=== PATIENT | male | born 1950 | race Caucasian/White ===

== ENCOUNTER 2020-04-07 21:23 | Inpatient (IN) ==
[2020-04-07] MEDS ORDERED: LIDOCAINE/EPINEPH/TETRACAINE 1 EA SYR EXT STA ×2 (21:58)
[2020-04-07] MEDS ORDERED: DIPHTHERIA/TETANUS/PERTUSSIS 0.5 ML SYR/VIAL IM ONE (21:58)
[2020-04-07 22:11] LABS: Basophils # (auto) 0.04 K/uL (0-0.2); Basophils % (auto) 0.6 %; Eosinophils # (auto) 0.06 K/uL (0-0.5); Eosinophils % (auto) 0.8 %; Hematocrit (blood only) 42.4 % (42-52); Hemoglobin 14.6 g/dL (14.0-18.0); Immature Granulocytes # (auto) 0.01 K/uL (0.00-0.02); Immature Granulocytes % (auto) 0.1 %; Lymphocytes # (auto) 3.22 K/uL (1.2-3.4); Lymphocytes % (auto) 44.5 %; Mean Corpuscular Hemoglobin 29.6 pg (25-34); Mean Corpuscular Hgb Conc 34.4 g/dL (32-36); Mean Platelet Volume 9.5 fL (7.4-10.4); Monocytes # (auto) 0.53 K/uL (0.11-0.59); Monocytes % (auto) 7.3 %; Neutrophils # (auto) 3.38 K/uL (1.4-6.5); Neutrophils % (auto) 46.7 %; Platelet Count 268 K/uL (130-400); RDW Coefficient of Variation 12.9 % (11.5-14.5); RDW Standard Deviation 40.6 fL (36.4-46.3); Red Blood Count 4.93 M/uL (4.7-6.1); White Blood Count 7.24 K/uL (4.8-10.8)
--- NOTE | 2020-04-07 22:16 | Emergency Department Note ---
History of Present Illness General Chief complaint: Fall Stated complaint: FALL, LAC TO FOREHEAD & NOSE History of Present Illness Maximum Pain Intensity: 0 This 70-year-old presents to the ER complaining of head and facial injury who is been drinking alcohol today and who takes aspirin Location: Head and face Quality: Throbbing Severity: Moderate Duration: Today Timing: Patient tripped while taking the trash out Context: Patient has multiple lacerations to his face and his family called EMS Modifying factors: better with rest; worse with activity Patient denies chest pain, dyspnea, abdominal pain, numbness, tingling, neck pain, loss of consciousness, fever, chills. 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 Beliefs That Will Affect Care: None Current Living Situation: Family Feels Safe at Home: Yes Safety Concerns: Feels Safe At This Time Review of Systems A total of 10 systems reviewed and were otherwise negative Physical Exam Vital Signs Vital Signs - 24 hr 04/07/20 21:28 04/07/20 22:57 04/07/20 23:32 Temperature 36.7 C Temperature Source Oral Pulse Rate 90 Pulse Rate [Right Finger] 96 H Respiratory Rate 16 19 Respiratory Depth Normal Blood Pressure 118/94 Blood Pressure [Right Arm] 129/107 H Blood Pressure Mean 102 Blood Pressure Mean [Right Arm] 114 Blood Pressure Position Lying Pulse Oximetry 95 97 96 Oxygen Delivery Method Room Air Room Air Sepsis Recent Fever Within 48 Hours No Sepsis New/Unexplained Change in Mental Status No Sepsis Action Taken by Nursing No Action Required PHYSICAL EXAM: VITALS: Vitals are noted on the nurse's note and reviewed by myself. Vital signs stable. GENERAL: Pleasant male with EtOH odor, in no acute distress, nondiaphoretic, well-developed well-nourished. SKIN: Multiple lacerations and abrasions to the forehead and nose, the rest of the skin was without obvious lacerations or abrasions. Capillary reflex less than 2 seconds. HEAD: Normocephalic Face: Nasal unit tender to palpation with extensive lacerations. Patient can fully open and close jaw without pain. EARS: External auditory canals clear, tympanic membranes pearly asif without erythema or effusion bilaterally. No hemotympanums. No matute sign. No mastoid tenderness. EYES: Pupils equal round and reactive to light and accommodation. Conjunctivae without injection, sclerae without icterus. Extraocular movements intact. NOSE: Patent, turbinates without inflammation or discharge. No sinus tendernes s. No septal hematoma or bleeding. FACE: No facial bone tenderness. Full range of motion of the jaw without tenderness. MOUTH: Mucous membranes moist. Pharynx without erythema or exudate. Uvula mi dline. Airway patent. Tongue does not deviate. NECK: Supple without nuchal rigidity. Cervical spine is nontender. Full range of motion of the neck without tenderness. No JVD. HEART: Regular rate and rhythm LUNGS: Clear to auscultation bilaterally without wheezes, rales or rhonchi. No dullness to percussion. No retractions or accessory muscle use. No chest wall tenderness. ABDOMEN: Positive bowel sounds x 4. Normal tympanic percussion. Soft, nontender, without masses or organomegaly. No guarding or rebound tenderness. MUSCULOSKELETAL: No tenderness of the thoracic or lumbar spine. No tenderness with pelvic rocking. Full range of motion without tenderness to palpation in all extremities. Normal gait. Strength 5/5 throughout. NEURO: Patient was alert and oriented to person place and time. Normal Mini- Mental status exam. Normal sensation to light and sharp touch. Negative Romberg and pronator drift. Cerebellar function intact. No focal neurological deficits. Course Administered Medications Multivitamins 10 ml/ Thiamine HCl 100 mg/ Folic Acid 1 mg/Sodium Chloride 1,011.2 mls @ 50 mls/hr IV .[id number] ONE Stop: 04/08/20 23:43 Last Admin: 04/08/20 04:41 Dose: 50 mls/hr Documented by: [id number] Discontinued Medications Diphtheria/Pertussis/Tetanus Vacc (Diphtheria/Tetanus/Pertussis 0.5 Ml Syr/Vial) 0.5 ml IM .ONCE ONE Stop: 04/07/20 21:59 Last Admin: 04/07/20 22:56 Dose: 0.5 ml Documented by: [id number] Ampicillin Sodium/Sulbactam Sodium 3,000 mg/ Sodium Chloride 108 mls @ 200 mls/hr IV NOW STA; Protocol Stop: 04/07/20 23:37 Last Infusion: 04/08/20 01:16 Dose: 0 mls/hr Documented by: [id number] Admin: 04/07/20 23:29 Dose: 200 mls/hr Documented by: [id number] Sodium Chloride (Nss 1000ml) 500 mls @ 999 mls/hr IV .Q31M ONE Stop: 04/08/20 00:08 Last Infusion: 04/08/20 01:16 Dose: 0 mls/hr Documented by: [id number] Admin: 04/07/20 23:56 Dose: 999 mls/hr Documented by: [id number] Lidocaine (Lidocaine/Epineph/Tetracaine 1 Ea Syr) 1 ea EXT NOW STA Stop: 04/07/20 21:59 Last Admin: 04/07/20 22:19 Dose: 1 ea Documented by: [id number] Lidocaine (Lidocaine/Epineph/Tetracaine 1 Ea Syr) 1 ea EXT NOW STA Stop: 04/07/20 21:59 Last Admin: 04/07/20 22:19 Dose: 1 ea Documented by: [id number] Medical Decision Making Medical Records Attestation: I reviewed the patient's medical records. Home Medications Current Medication List: was personally reviewed by me Laboratory Data Attestation: I reviewed the patient's lab results. Result diagrams: 04/08/20 05:19 04/07/20 21:02 Lab Results 04/07/20 04/07/20 04/07/20 Range/Units 21:02 21:02 22:07 WBC 7.24 (4.8-10.8) K/uL RBC 4.93 (4.7-6.1) M/uL Hgb 14.6 (14.0-18.0) g/dL Hct 42.4 (42-52) % MCV 86.0 (80-100) fL MCH 29.6 (25-34) pg MCHC 34.4 (32-36) g/dL RDW Std Deviation 40.6 (36.4-46.3) fL RDW Coeff of Tk 12.9 (11.5-14.5) % Plt Count 268 (130-400) K/uL MPV 9.5 (7.4-10.4) fL Immature Gran % (Auto) 0.1 % Neut % (Auto) 46.7 % Lymph % (Auto) 44.5 % [place] % (Auto) 7.3 % Eos % (Auto) 0.8 % Baso % (Auto) 0.6 % Neut # (Auto) 3.38 (1.4-6.5) K/uL Lymph # (Auto) 3.22 (1.2-3.4) K/uL [place] # (Auto) 0.53 (0.11-0.59) K/uL Eos # (Auto) 0.06 (0-0.5) K/uL Baso # (Auto) 0.04 (0-0.2) K/uL Immature Gran # (Auto) 0.01 (0.00-0.02) K/uL Sodium 134 L (136-145) mmol/L Potassium 3.6 (3.5-5.1) mmol/L Chloride 102 (98-107) mmol/L Carbon Dioxide 23 (21-32) mmol/L Anion Gap 9.0 (3-11) BUN 11 (7-18) mg/dl Creatinine 0.80 (0.6-1.4) mg/dl Est Cr Clr Drug Dosing 97.3 ml/min Est GFR ( Amer) 105.6 Est GFR (Non-Af Amer) 91.1 BUN/Creatinine Ratio 13.8 (10-20) Glucose 82 (70-99) mg/dl Calcium 9.1 (8.5-10.1) mg/dl Magnesium 2.4 (1.8-2.4) mg/dl Total Bilirubin 0.5 (0.2-1) mg/dl AST 25 (15-37) U/L ALT 39 (12-78) U/L Alkaline Phosphatase 55 (45-117) U/L Total Creatine Kinase 277 (39-308) U/L Troponin I < 0.015 (0-0.045) ng/ml Total Protein 7.8 (6.4-8.2) gm/dl Albumin 4.0 (3.4-5.0) gm/dl Globulin 3.8 (2.5-4.0) gm/dl Albumin/Globulin Ratio 1.1 (0.9-2) Ethyl Alcohol mg/dL 242.5 H (0-3) mg/dl Imaging Data Attestation: I personally reviewed and interpreted this imaging study as follows: Blood Pressure Blood Pressure Findings: Normal blood pressure Head Trauma GCS Score: 15 MDM Narrative Prior records/ancillary studies reviewed. Triage Nursing notes reviewed. Additional history obtained from nursing. The patient's history was concerning for traumatic injury Differential diagnosis: Etiologies such as fracture, dislocation, intra-abdominal, pneumothorax, intrathoracic , intracranial, neurologic, as well as other traumatic pathologies were entertained. Physical examination findings: As above. The patients vitals were stable. ER treatment provided: IV Normal Saline hydration, Tetanus: Given Antibiotics: Unasyn Procedures: Wounds were cleansed by nursing An order was placed for continuous cardiac monitoring. The monitor shows a rate of 60-1 10 with a sinus rhythm. On reassessment the patient felt better. Vital signs were proved. Diagnostic interpretation by me: A 12 lead ECG revealed no emergent pathology. Normal sinus, normal intervals, no acute ST-T wave changes. Impression normal sinus with interpreted by myself EKG ordered for fall I think arrhythmia is unlikely. EKG shows normal sinus rhythm with no interval abnormalities such as QT prolongation or WPW. There are no findings to suggest Brugada syndrome. Cardiac monitoring in the emergency department reveals no tachycardic or bradycardic dysrhythmia. Hypertrophic cardiomyopathy was considered but there are no clear historical elements pointing toward this. EKG is not suggestive. The QRS voltage is not extremely large and there are no suggestive Q waves. The labs revealed elevated alcohol. Stable H&H Imaging studies: CT HEAD: Comparison with 09/27/19 exam. Acute nondisplaced nasal bone fracture. No acute intracranial hemorrhage, mass effect or edema. No evidence of acute cortical stroke. Periventricular small vessel ischemic change. No midline shift or hydrocephalus. Diffuse parenchymal atrophy. Atherosclerotic calcifications of the carotid siphons and vertebrobasilar arteries. Visualized sinuses and mastoid air cells are clear. Radiologist: Josh Jean-Baptiste M.D. CT C SPINE: No evidence of acute or healing fracture or malalignment. Diffuse osteopenia. Degenerative changes of spine. No critical central canal stenosis. No apical pneumothorax. Atherosclerotic calcific changes of the cervical carotid arteries. Radiologist: Josh Jean-Baptiste M.D. Chest x-ray with no acute consolidation, pneumothorax or free air per my interpretation CT FACIAL: Acute comminuted fracture involving the nasal bone. No other acute or healing fractures. Globes are intact and retrobulbar soft tissues are unremarkable. Scattered paranasal sinus mucosal thickening with no air-fluid levels. No radiopaque foreign bodies. Radiologist: Josh Jean-Baptiste M.D. Consultation: A consultation was placed with Dr. Stout. The case was discussed and diagnostics were reviewed. The patient was admitted to medicine. Oral surgery, Dr. Harrell, was paged for surgical repair. He will see the patient this morning for further evaluation and treatment. This appears to be consistent with extensive facial lacerations and open fracture. Patient started antibiotics and given a tetanus. Lacerations were quite complex. Consultation was placed with oral plastic surgery. Patient was admitted to medicine. By the evaluation outlined above emergent etiologies such as dislocation, intra-abdominal, pneumothorax, pulmonary contusion, hemothorax, intracranial, neurologic,as well as others were deemed relatively unlikely. The pt informed about the findings as listed above. All questions were answered and pleased with the treatment. Impression & Plan Head injury, Complex laceration of face, Face lacerations, Open fracture nasal bone, Alcohol intoxication Discharge Plan Visit Data Chief Complaint: Fall Stated Complaint: FALL, LAC TO FOREHEAD & NOSE ED Provider: Omid Carlton ED Midlevel Provider: Luisa Kelly Discharge Problem: Head injury, Complex laceration of face, Face lacerations, Open fracture nasal bone, Alcohol intoxication Patient Disposition: Admitted As Inpatient Condition: Fair Discharge Instructions Interventions: ED Discharge Assessment Last Done: 04/08/20 01:03 Discharge Problem: Head injury Qualifiers: Encounter type: initial encounter Qualified Code(s): S09.90XA - Unspecified injury of head, initial encounter
[2020-04-07 22:17] LABS: Alanine Aminotransferase 39 U/L (12-78); Aspartate Aminotransferase 25 U/L (15-37); BUN Creatinine Ratio 13.8 (10-20); Blood Urea Nitrogen 11 mg/dl (7-18); Calcium 9.1 mg/dl (8.5-10.1); Carbon Dioxide 23 mmol/L (21-32); Chloride 102 mmol/L (98-107); Creatinine Clr Calc Pharmacy 97.3 ml/min; Est GFR (African American) 105.6; Est GFR (Non-African American) 91.1; Glucose 82 mg/dl (70-99); Potassium 3.6 mmol/L (3.5-5.1); Sodium 134 mmol/L (136-145)
[2020-04-07 22:22] LABS: Albumin Globulin Ratio 1.1 (0.9-2); Alkaline Phosphatase 55 U/L (45-117); Bilirubin,Total 0.5 mg/dl (0.2-1); Creatine Kinase 277 U/L (39-308); Globulin 3.8 gm/dl (2.5-4.0); Total Protein 7.8 gm/dl (6.4-8.2); Troponin I < 0.015 ng/ml (0-0.045)
[2020-04-07] MEDS ORDERED: AMPICILLIN/SULBACTAM SOD 3,000 MG in 0.9 % SODIUM CHLORIDE 100 ML IV STA (23:05)
--- NOTE | 2020-04-07 23:22 | Emergency Department Note ---
ED Visit Note This Patient was discussed with the physician finance assistant, Luisa Kelly PA-C. The pertinent historical and physical exam findings were confirmed. I agree with the studies ordered and with the interpretations of these studies. I agree with the disposition and care plan. .
[2020-04-07] MEDS ORDERED: SODIUM CHLORIDE 0.9% 1000ML 500 ML IV ONE (23:38)
[2020-04-08 00:15] LABS: Magnesium 2.4 mg/dl (1.8-2.4)
--- NOTE | 2020-04-08 01:02 | History & Physical Report ---
Date of Service April 08, 2020 Assessment & Plan (1) Facial trauma: Multiple lacerations Nasal bone fracture Secondary to fall under the influence of alcohol COPD, stable Ongoing tobacco abuse OBS Medical telemetry given propensity for alcohol withdrawal DT precautions, AWSS Maxillofacial consult RE facial trauma (ER provider attempted to contact Dr. Harrell from ER.) Keep patient n.p.o. for now in anticipation of procedure. Augmentin course for dirty facial wounds. Nicotine patch PRN DVT prophylaxis. SCDs RE bleeding facial lacerations, traumatic epistaxis Full code Text document was generated using [employer] voice recognition software. It may contain grammatical or spelling errors. Kindly contact undersigned for clarification of any documentation item in question. History of Present Illness Chief Complaint: Fall Primary Care Provider: Jez Mayer MD History obtained from patient and records. Medical history significant for COPD, ongoing tobacco abuse. Patient was having a drink with a friend at his home last night. Patient tripped and fell while taking the trash out. Patient subsequently sustained abrasions on the right shoulder, multiple bleeding facial lacerations, and epistaxis. Denies syncope, LOC, chest pain, S OB. Patient denies headache symptoms. Patient brought to the ER for evaluation. IV Unasyn, tetanus toxoid administered at the ER for dirty facial wounds. Medical History as above No prior history of alcohol withdrawal/seizures. Surgical History : Hernia repair Family History : Colon cancer, heart disease, stroke Personal/Social history : Half pack daily, daily alcohol intake denies abuse, retired cook chef Allergies Allergy/AdvReac Type Severity Reaction Status Date / Time No Known Allergies Allergy Unknown Verified 04/07/20 23:01 Home Medications Home Medications Medication Instructions Recorded Confirmed Type No Known Home Medications 09/27/19 04/07/20 History Past Med/Surg History Medical History Hyperlipidemia Surgical History No pertinent past surgical history Social History Smoking Status: Current every day smoker Hx Alcohol Use: Yes Alcohol type: beer Hx Substance Use: No Preferred Language: Icelandic Communication Ability: Effective Communication Ability Comment: 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 Beliefs That Will Affect Care: None Current Living Situation: Family Feels Safe at Home: Yes Safety Concerns: Feels Safe At This Time Review of Systems Review of Systems: As per HPI, all 10 systems reviewed, all other ROS negative Physical Exam Physical Exam: GENERAL: Comfortable, pleasant, obese, alcoholic fetor, no respiratory distress SKIN: Normal color, warm HEENT: Partial alopecia, lacerated wound frontal area, pink palpebral conjunctivae, no ptosis, lacerated wounds over swollen nasal dorsum, dried blood noted over the nostrils, dry buccal mucosa, partially edentulous NECK : Supple, short neck, no tenderness CHEST : Decreased breath sounds, no tenderness HEART : RRR, no obvious murmurs ABDOMEN: Some distention, nontender EXTREMITIES : Abrasion right shoulder, no LE swelling/tenderness, no other conspicuous deformities noted NEUROLOGIC : Coherent, no facial asymmetry, no other gross focality Results & Data Results & Data ([facility]) Vital Signs (Past 12 Hours) Vital Signs Temp Pulse Pulse Resp BP BP Pulse Ox 04/07/20 23:32 96 04/07/20 22:57 96 H 19 129/107 H 97 04/07/20 21:28 36.7 C 90 16 118/94 95 Laboratory Results Laboratory Results WBC 7.24 K/uL (4.8-10.8) 04/07/20 21:02 RBC 4.93 M/uL (4.7-6.1) 04/07/20 21:02 Hgb 14.6 g/dL (14.0-18.0) 04/07/20 21:02 Hct 42.4 % (42-52) 04/07/20 21:02 MCV 86.0 fL (80-100) 04/07/20 21:02 MCH 29.6 pg (25-34) 04/07/20 21:02 MCHC 34.4 g/dL (32-36) 04/07/20 21:02 RDW Std Deviation 40.6 fL (36.4-46.3) 04/07/20 21:02 RDW Coeff of Tk 12.9 % (11.5-14.5) 04/07/20 21:02 Plt Count 268 K/uL (130-400) 04/07/20 21:02 MPV 9.5 fL (7.4-10.4) 04/07/20 21:02 Immature Gran % (Auto) 0.1 % 04/07/20 21:02 Neut % (Auto) 46.7 % 04/07/20 21:02 Lymph % (Auto) 44.5 % 04/07/20 21:02 [place] % (Auto) 7.3 % 04/07/20 21:02 Eos % (Auto) 0.8 % 04/07/20 21:02 Baso % (Auto) 0.6 % 04/07/20 21:02 Neut # (Auto) 3.38 K/uL (1.4-6.5) 04/07/20 21:02 Lymph # (Auto) 3.22 K/uL (1.2-3.4) 04/07/20 21:02 [place] # (Auto) 0.53 K/uL (0.11-0.59) 04/07/20 21:02 Eos # (Auto) 0.06 K/uL (0-0.5) 04/07/20 21:02 Baso # (Auto) 0.04 K/uL (0-0.2) 04/07/20 21:02 Immature Gran # (Auto) 0.01 K/uL (0.00-0.02) 04/07/20 21:02 Sodium 134 mmol/L (136-145) L 04/07/20 21:02 Potassium 3.6 mmol/L (3.5-5.1) 04/07/20 21:02 Chloride 102 mmol/L (98-107) 04/07/20 21:02 Carbon Dioxide 23 mmol/L (21-32) 04/07/20 21:02 Anion Gap 9.0 (3-11) 04/07/20 21:02 BUN 11 mg/dl (7-18) 04/07/20 21:02 Creatinine 0.80 mg/dl (0.6-1.4) 04/07/20 21:02 Est Cr Clr Drug Dosing 97.3 ml/min 04/07/20 21:02 Est GFR ( Amer) 105.6 04/07/20 21:02 Est GFR (Non-Af Amer) 91.1 04/07/20 21:02 BUN/Creatinine Ratio 13.8 (10-20) 04/07/20 21:02 Glucose 82 mg/dl (70-99) 04/07/20 21:02 Calcium 9.1 mg/dl (8.5-10.1) 04/07/20 21:02 Magnesium 2.4 mg/dl (1.8-2.4) 04/07/20 21:02 Total Bilirubin 0.5 mg/dl (0.2-1) 04/07/20 21:02 AST 25 U/L (15-37) 04/07/20 21:02 ALT 39 U/L (12-78) 04/07/20 21:02 Alkaline Phosphatase 55 U/L (45-117) 04/07/20 21:02 Total Creatine Kinase 277 U/L (39-308) 04/07/20 21:02 Troponin I < 0.015 ng/ml (0-0.045) 04/07/20 21:02 Total Protein 7.8 gm/dl (6.4-8.2) 04/07/20 21:02 Albumin 4.0 gm/dl (3.4-5.0) 04/07/20 21:02 Globulin 3.8 gm/dl (2.5-4.0) 04/07/20 21:02 Albumin/Globulin Ratio 1.1 (0.9-2) 04/07/20 21:02 Ethyl Alcohol mg/dL 242.5 mg/dl (0-3) H 04/07/20 22:[address] head initial read: Acute nondisplaced nasal bone fracture. No intracranial hemorrhage, mass-effect or edema. Diffuse parenchymal atrophy. CT cervical spine: Initial read no evidence of acute or healing fracture or malalignment. CT facial initial read: Acute comminuted fracture involving the nasal bone. No other acute or healing fractures. Intact globe. Retrobulbar soft tissues are unremarkable. Chest x-ray as per my interpretation cardiomegaly, atelectasis. EKG as per my interpretation : Rate 95, NSR, normal axis, T wave flattening inferior leads Code Status & VTE Plan VTE Prophylaxis Plan VTE Prophylaxis will be ordered: Yes
[2020-04-08] MEDS ORDERED: ATIVAN IV ALCOHOL WITHDRAWL IV PRN (02:55)
[2020-04-08] MEDS ORDERED: OXYCODONE HCL IR 5 MG TAB (IMMEDIATE RELEASE) PO PRN (02:55)
[2020-04-08] MEDS ORDERED: LORazepam 3 MG/6 ML VIAL IV PRN (02:55)
[2020-04-08] MEDS ORDERED: KETOROLAC TROMETHAMINE 15 MG/ML VIAL IV PRN (02:55)
[2020-04-08] MEDS ORDERED: LORazepam 2 MG/4 ML VIAL IV PRN (02:55)
[2020-04-08] MEDS ORDERED: ACETAMINOPHEN 325 MG TAB PO PRN (02:55)
[2020-04-08] MEDS ORDERED: LORazepam 1 MG/2 ML VIAL IV PRN (02:55)
[2020-04-08] MEDS ORDERED: PROMETHAZINE HCL 12.5 MG in SODIUM CHLORIDE 0.9% 50 ML IV PRN (02:55)
[2020-04-08] MEDS ORDERED: MULTI-VITAMIN INFUSION 10 ML, THIAMINE HCL 100 MG, FOLIC ACID 1 MG in SODIUM CHLORIDE 0... IV ONE (03:30)
[2020-04-08] MEDS ORDERED: Augmentin: PHARMACY CONSULT IN PROGRESS PRN (04:21)
[2020-04-08 05:49] LABS: Basophils # (auto) 0.03 K/uL (0-0.2); Basophils % (auto) 0.3 %; Eosinophils # (auto) 0.12 K/uL (0-0.5); Eosinophils % (auto) 1.3 %; Hematocrit (blood only) 41.3 % (42-52); Hemoglobin 14.5 g/dL (14.0-18.0); Immature Granulocytes # (auto) 0.03 K/uL (0.00-0.02); Immature Granulocytes % (auto) 0.3 %; Lymphocytes # (auto) 2.78 K/uL (1.2-3.4); Lymphocytes % (auto) 29.5 %; Mean Corpuscular Hemoglobin 30.1 pg (25-34); Mean Corpuscular Hgb Conc 35.1 g/dL (32-36); Mean Corpuscular Volume 85.9 fL (80-100); Mean Platelet Volume 9.2 fL (7.4-10.4); Monocytes % (auto) 6.4 %; Neutrophils # (auto) 5.87 K/uL (1.4-6.5); Neutrophils % (auto) 62.2 %; Platelet Count 252 K/uL (130-400); RDW Coefficient of Variation 13.1 % (11.5-14.5); RDW Standard Deviation 41.1 fL (36.4-46.3); Red Blood Count 4.81 M/uL (4.7-6.1); White Blood Count 9.43 K/uL (4.8-10.8)
[2020-04-08 06:45] LABS: BUN Creatinine Ratio 11.3 (10-20); Calcium 8.6 mg/dl (8.5-10.1); Creatinine Clr Calc Pharmacy 99.7 ml/min; Est GFR (African American) 109.1; Est GFR (Non-African American) 94.1; Potassium 3.9 mmol/L (3.5-5.1)
--- NOTE | 2020-04-08 07:27 | CT Scan Report ---
CT OF THE HEAD WITHOUT CONTRAST CLINICAL HISTORY: fall, facial injury ETOH COMPARISON STUDY: Head CT September 27, 2019. TECHNIQUE: Helical axial images of the head were obtained without IV contrast. Automated exposure con trol was utilized for the study. A dose lowering technique was utilized adhering to the principles o f ALARA. FINDINGS: No acute intracranial hemorrhage, midline shift or mass effect is present. The ventricular system is unremarkable. The basilar cisterns are patent. No extra-axial collections are present. Ther e are no findings to suggest acute dural sinus thrombosis or acute territorial infarct. No significan t calvarial abnormalities are present. Visualized portions of the sinuses and mastoid air cells are c lear. There is a small contusion and laceration. This contains a few radiodensities that measure up t o 3 mm. These suggest tiny foreign bodies. There is no calvarial fracture. Acute nasal bone fractures are better depicted on the maxillofacial CT. IMPRESSION: 1. No acute intracranial findings. 2. Forehead contusion and laceration which contains a few radiopaque foreign bodies that measure up t o 3 mm. This finding will be called/faxed to the ordering provider at time of dictation. 3. No calvarial fracture. 4. Acute nasal bone fractures which are better depicted on the maxillofacial CT. ACT 112: Negative or not required by law. Electronically signed by: Devin Vega M.D. 04/08/2020 7:25 AM
--- NOTE | 2020-04-08 07:29 | CT Scan Report ---
CT SCAN OF THE CERVICAL SPINE CLINICAL HISTORY: Fall. Intoxication. COMPARISON STUDY: CT of the cervical spine dated 09/27/2019. TECHNIQUE: CT scan of the cervical spine is performed from the skull base to the upper thoracic spine . Images are reviewed in the axial, sagittal, and coronal planes. IV contrast was not administered fo r this examination. A dose lowering technique was utilized adhering to the principles of ALARA. CT DOSE: 1058.03 mGy.cm FINDINGS: Skeletal structures: The skeletal structures appear osteopenic. There is no evidence of fracture or s ubluxation involving the cervical spine. Vertebral body height is maintained. There is minimal retrol isthesis at C3-C4. Alignment is otherwise preserved. There is straightening of the cervical lordosis. Anterior osteophytes are seen throughout. The odontoid process and lateral masses are intact. The at lantoaxial articulation is preserved noting productive degenerative change. The spinous processes zach ear intact. There is mild to moderate multilevel cervical spondylosis. Uncovertebral and facet arthro belgica contribute to neural foraminal narrowing at several levels. Intervertebral discs: There is moderate disc space narrowing at C3-C4 and C4-C5. Mild disc space narr owing is seen at C7-T1. Central canal: Posterior disc osteophyte complexes at C3-C4 and C4-C5 may contribute to mild acquired compromise of the central canal. Soft tissues: The prevertebral and paraspinous soft tissues are within normal limits. There is athero sclerotic calcification of the carotid bulbs. Calvarium: The visualized calvarium at the skull base appears intact. Brain parenchyma: Partially visualized brain parenchyma the skull base is within normal limits. Sinuses and mastoids: Trace mucosal thickening is noted in the right maxillary antrum. The mastoid ai r cells are well pneumatized. Lung apices: Clear as visualized. IMPRESSION: There is no evidence of fracture or subluxation involving the cervical spine. ACT 112: Negative or not required by law. Electronically signed by: Christofer Downs M.D. 04/08/2020 7:28 AM
--- NOTE | 2020-04-08 07:32 | CT Scan Report ---
MAXILLOFACIAL CT WITHOUT CONTRAST CLINICAL HISTORY: fall, facial injury ETOH COMPARISON STUDY: Head CT September 27, 2019. TECHNIQUE: A maxillofacial CT was performed without IV contrast. Coronal and sagittal reformats were viewed. Automated exposure control was utilized for the study. A dose lowering technique was utiliz ed adhering to the principles of ALARA. FINDINGS: Globes are intact. There is no retrobulbar hematoma. Forehead contusion and laceration whic h contains several small radiopaque foreign bodies is better depicted on the head CT. Note is made of acute comminuted mildly displaced bilateral nasal bone fractures. There is no soft tissue swelling w ith gas consistent with laceration. A few tiny radiodensities suggest radiopaque foreign bodies. Orbi pennie floors are intact. There is no additional facial fractures. There is mild sinus mucosal thickenin g. Alignment of the temporomandibular joints is anatomic. There is no skull base fracture. Cervical s pine CT will be reported separately. IMPRESSION: 1. Acute comminuted mildly displaced bilateral nasal bone fractures. 2. Nasal soft tissue swelling and laceration which contains tiny radiopaque densities suggestive of s mall foreign bodies. Less likely, these could reflect bone fragments. This finding will be called/fax ed to the ordering provider at time of dictation. ACT 112: Negative or not required by law. Electronically signed by: Devin Vega M.D. 04/08/2020 7:30 AM
--- NOTE | 2020-04-08 08:10 | XRay Report ---
XR chest 1V portable HISTORY: 70 years-old Male Chest Pain acute atypical chest pain COMPARISON: Chest radiograph 01/14/2018 TECHNIQUE: Portable AP view of the chest FINDINGS: Moderate enlargement of the cardiac silhouette. No pneumothorax, pleural effusion or overt pulmonary edema. No airspace consolidation typical for pneumonia. There is unchanged mild linear subsegmental b ibasilar scarring/atelectasis. Degenerative changes of the shoulders and spine. Healed remote lateral right lower rib fractures. IMPRESSION: Cardiomegaly without acute process. ACT 112: Negative or not required by law. The above report was generated using voice recognition software. It may contain grammatical, syntax o r spelling errors. Electronically signed by: Carlitos Garcia M.D. 04/08/2020 8:08 AM
[2020-04-08] MEDS: AMOXICILLIN/CLAVULANATE 875 MG TAB PO SCH ×2 (08:27→21:27)
--- NOTE | 2020-04-08 11:59 | XRay Report ---
XR hip AKASH 2v w pelvis CLINICAL HISTORY: Bilateral hip pain following fall. COMPARISON STUDY: No previous studies for comparison. FINDINGS: Sacroiliac joints and symphysis pubis are intact. There is no acute fracture within the pel vis or hips. There is moderate joint space narrowing. There is mild osteophytosis of both hips. There is no evidence for avascular necrosis. There is moderate vascular calcification. IMPRESSION: No acute fracture within the pelvis or hips. ACT 112: Negative or not required by law. Electronically signed by: Devin Vega M.D. 04/08/2020 11:58 AM
--- NOTE | 2020-04-08 12:00 | XRay Report ---
XR femur LT 2V routine CLINICAL HISTORY: Fall COMPARISON: None FINDINGS: There is no acute fracture of the left femur. There is no left knee joint effusion. Alignm ent of the left hip and left knee is anatomic. No osseous lesion is noted. IMPRESSION: No acute fracture of the left femur. ACT 112: Negative or not required by law. Electronically signed by: Devin Vega M.D. 04/08/2020 11:58 AM
[2020-04-08] MEDS ORDERED: fentaNYL citrate 100 MCG/2 ML VIAL ONE ×2 (15:47→17:42)
[2020-04-08] MEDS ORDERED: SUCCINYLCHOLINE CHLORIDE 20 MG/ML 10 ML VIAL IV ONE (15:48)
[2020-04-08] MEDS ORDERED: LIDOCAINE HCL 2% 2 ML VIAL/AMP(20MG/ML) INFIL ONE ×2 (15:48→17:42)
[2020-04-08] MEDS ORDERED: PROPOFOL IV EMULSION 10 MG/ML 20 ML VIAL IV ONE ×2 (15:48→17:42)
--- NOTE | 2020-04-08 17:22 | Anesthesiology Consultation ---
Date of Service April 08, 2020 Assessment & Plan (1) Encounter for pre-operative examination: Chart Review Chart Review: Acceptable Risk for Surgery Consults Requested none ASA ASA2 Proposed Anesthesia Anesthesia Type: General Risk / Benefits Reviewed With: PT / POA / Parent / Guardian, Accepts Plan and Informed Consent Obtained History Surgery Operation Date: 04/08/20 10:45 Proposed Procedures p Washout Facial Wound, Laceration Repair, Close Nasal Fracture Reduction - Keo Harrell MD, AMELIAS s Closed Reduction Nasal Fracture - Keo Harrell MD, DDS Height/Weight Height: 5 ft 7 in Weight: 87.8 kg Allergies Allergy/AdvReac Type Severity Reaction Status Date / Time No Known Allergies Allergy Unknown Verified 04/07/20 23:01 Medications Home Medications Medication Instructions Recorded Confirmed Last Taken No Known Home Medications 09/27/19 04/07/20 Unknown Active Medications Generic Name Dose Route Start Last Admin Trade Name Freq PRN Reason Stop Dose Admin Amoxicillin/Clavulanate Potassium 1 tab 04/08/20 08:00 04/08/20 08:27 Amoxicillin/Clavulanate 875 Mg Tab PO 04/15/20 07:59 1 tab BIDM OTTONIEL Administration Protocol Past Medical History Medical History Hyperlipidemia Exercise / Class Metabolic Activity II 4-5 Yardwork/Stairs/Walk up hill Past Surgical History Surgical History No pertinent past surgical history Past Anesthesia History No Hx of Anesthesia Complications and No Family Hx of Anesthesia Complications History of PONV No Hx of PONV and No Hx of Motion Sickness Social History Smoking Status: Current every day smoker tobacco type: cigarettes Hx Alcohol Use: Yes Alcohol type: beer alcohol intake frequency: other Alcohol Intake Frequency Comment: MULTI FACE LACS - NOSE FRACTURE - REMAINS UNDER ETOH Hx Substance Use: No Physical Exam Vital Signs Last Vital Signs Temp 98.6 F 04/08/20 17:30 Pulse 81 04/08/20 17:30 Resp 18 04/08/20 17:30 BP 186/99 H 04/08/20 17:30 Pulse Ox 93 04/08/20 17:30 ENMT Mouth: no dentition abnormality Thyromental Distance: > or= 3.5 Finger Breadths Mallampati Class: II Neck normal visual inspection Respiratory normal respiratory effort Auscultation: lungs clear to auscultation bilaterally Cardiovascular Rate/Rhythm: regular rate and regular rhythm Testing Laboratory Results 04/08/20 05:19 04/08/20 05:19 Blood Type O Positive 04/08/20 05:19 Antibody Screen NEGATIVE 04/08/20 05:19 Electrocardiogram Date: 04/07/20 Normal sinus rhythm, rate 95 bpm Normal ECG When compared with ECG of 14-JAN-2018 21:48, QT has lengthened Chest X-Ray Date: 04/07/20 IMPRESSION: Cardiomegaly without acute process.
[2020-04-08] MEDS ORDERED: DEXAMETHASONE SOD INJ 4 MG/ML VIAL ONE (17:42)
[2020-04-08] MEDS ORDERED: ONDANSETRON INJ 2 MG/ML 2 ML VIAL ONE (17:42)
[2020-04-08] MEDS ORDERED: MIDAZOLAM HCL 1 MG/ML 2ML VIAL ONE (17:44)
--- NOTE | 2020-04-08 17:49 | Hospitalist Progress Note ---
Date of Service April 08, 2020 Assessment & Plan (1) Facial trauma: Facial Trauma Multiple lacerations Nasal bone fracture Secondary to fall in setting of alcohol intoxication --Head CT:No acute intracranial findings. Forehead contusion and laceration which contains a few radiopaque foreign bodies that measure up to 3 mm. This finding will be called/faxed to the ordering provider at time of dictation. No calvarial fracture. Acute nasal bone fractures which are better depicted on the maxillofacial CT. --Facial CT:Acute comminuted mildly displaced bilateral nasal bone fractures. Nasal soft tissue swelling and laceration which contains tiny radiopaque densities suggestive of small foreign bodies. Less likely, these could reflect bone fragments. This finding will be called/faxed to the ordering provider at time of dictatio --Neck CT:There is no evidence of fracture or subluxation involving the cervical spine. --Pain control --Continue Augmentin for facial wounds --Consulted maxillofacial surgery --Plan for surgery today --NPO for now Alcohol use disorder On withdrawal protocol Monitor for withdrawal Continue thiamine, folic acid COPD Ongoing tobacco abuse Saturating well on room air Denies being on inhalers at home Counseled to quit smoking DVT Px: SCDs facial lacerations, traumatic epistaxis Code Status Full code Disposition PT/OT prior to discharge Admission and Anticipated Discharge Date Admission Date: April 08, 2020 Subjective Patient is seen and examined at bedside Denies any significant pain at the site of trauma Also denies any withdrawal symptoms Discussed with Dr. Harrell today Patient denies any chest pain, shortness of breath, dizziness, nausea, abdominal pain Offers no other complaints Review of Systems Review of Systems: All systems reviewed & are unremarkable except as noted in HPI & below Physical Exam Physical Exam: Physical Exam: Vitals signs as noted above General Appearance:Moderately built and nourished, no apparent distress Head: normocephalic, +traumatic, +Nasal, Forehead trauma/laceration Eyes: normal inspection, EOMI Neck: supple, Trachea midline Respiratory/Chest: Decreased breath sounds, scattered wheezes Cardiovascular: S1, S2, No murmur Abdomen/GI:Soft, Non tender, Bowel sounds present Extremities/Musculoskelatal:normal inspection, Trace edema Neurologic/Psych:AAOX3, grossly no focal neurological deficits Skin: normal color, warm Results & Data Results & Data ([facility]) Vital Signs (Past 12 Hours) Vital Signs Temp Pulse Resp BP Pulse Ox 04/08/20 15:53 36.6 C 77 17 167/93 H 95 04/08/20 11:55 36.7 C 84 18 163/98 H 94 04/08/20 07:00 37.0 C 93 H 18 114/73 93 Laboratory Results Short CBC 04/07/20 04/08/20 Range/Units 21:02 05:19 WBC 7.24 9.43 (4.8-10.8) K/uL Hgb 14.6 14.5 (14.0-18.0) g/dL Hct 42.4 41.3 L (42-52) % Plt Count 268 252 (130-400) K/uL BMP 04/07/20 04/08/20 21:02 05:19 Sodium 134 L 141 D Potassium 3.6 3.9 Chloride 102 109 H Carbon Dioxide 23 22 BUN 11 8 Creatinine 0.80 0.74 Glucose 82 79 Calcium 9.1 8.6 Cardiac Enzymes 04/07/20 Range/Units 21:02 Total Creatine Kinase 277 (39-308) U/L Troponin I < 0.015 (0-0.045) ng/ml Liver Function 04/07/20 Range/Units 21:02 Total Bilirubin 0.5 (0.2-1) mg/dl AST 25 (15-37) U/L ALT 39 (12-78) U/L Alkaline Phosphatase 55 (45-117) U/L Albumin 4.0 (3.4-5.0) gm/dl
[2020-04-08] MEDS ORDERED: CEFAZOLIN 2,000 MG/15 ML IV PUSH IV ONE (17:54)
--- NOTE | 2020-04-08 17:57 | History & Physical Bridge Note ---
Date of Service April 08, 2020 History & Physical Bridge Note I have examined the patient, reviewed the History & Physical and in the interval since the performance of the History & Physical I have noted the following changes of clinical significance: no changes noted. He has extensive facial abrasions and lacerations as well as an open nasal fracture. I reviewed the extent of his injuries with him and completed an informed consent. Will proceed to the OR this evening.
[2020-04-08] MEDS ORDERED: LIDOCAINE/EPINEPHRINE 1% 20 ML VIAL ONE (18:07)
[2020-04-08] MEDS ORDERED: BACITRACIN OINT 15 GM TUBE ONE (18:07)
[2020-04-08] MEDS ORDERED: STERILE IRRIGATING OPTH SOLUTION (BSS) 15ML ONE (18:26)
--- NOTE | 2020-04-08 18:57 | Electrocardiogram Report ---
Test Reason : Blood Pressure : / mmHG Vent. Rate : 095 BPM Atrial Rate : 095 BPM P-R Int : 132 ms QRS Dur : 096 ms QT Int : 382 ms P-R-T Axes : 053 002 002 degrees QTc Int : 480 ms Poor data quality, interpretation may be adversely affected Normal sinus rhythm Normal ECG When compared with ECG of 14-JAN-2018 21:48, QT has lengthened Confirmed by Reji Smith ([id number]) on 04/08/2020 6:56:40 PM Referred By: REFERRED SELF Confirmed By:Tre Smith
--- NOTE | 2020-04-08 19:04 | Post Operative Brief Note ---
Immediate Post Op Note v1 Date of Surgery April 08, 2020 Pre & Post Diagnosis Operation Date: 04/08/20 10:45 Pre-Op Diagnosis: extensive facial abrasions and lacerations, open nasal fracture Post-Op Diagnosis: extensive facial abrasions and lacerations, open nasal fracture I identified the patient and participated in the time-out.: Yes Procedure Operation Date: 04/08/20 10:45 Actual Procedures p Washout Facial Wound, Laceration Repair, Close Nasal Fracture Reduction(Not Applicable) - Keo Harrell MD, DDS s Closed Reduction Nasal Fracture(Not Applicable) - Keo Harrell MD, DDS Surgeon Keo Harrell MD, DDS Biological Inspector None Estimated Blood Loss 15 Findings Consistent with Post-Op Diagnosis
[2020-04-08] MEDS ORDERED: MoRPHine SULFATE 4 MG/ML 1 ML CARP\\VIAL IV PRN (19:22)
--- NOTE | 2020-04-08 19:39 | Anesthesiology Progress Note ---
Date of Service April 08, 2020 Anesthesia Post Procedure Vital Signs Vital Signs: Temp Pulse Pulse Pulse Resp BP BP 04/08/20 19:35 97.5 F L 79 20 175/98 H 04/08/20 19:25 80 20 164/97 H 04/08/20 19:15 87 19 172/94 H 04/08/20 19:09 97.5 F L 86 16 175/100 H 04/08/20 17:30 98.6 F 81 18 186/99 H 04/08/20 15:53 97.9 F 77 17 167/93 H 04/08/20 11:55 98.1 F 84 18 163/98 H 04/08/20 07:00 98.6 F 93 H 18 114/73 04/08/20 02:00 97.7 F 82 82 20 146/83 H 04/08/20 01:30 97.7 F 82 20 146/83 H 04/08/20 01:15 82 04/08/20 01:00 18 132/115 H 04/07/20 23:32 04/07/20 22:57 96 H 19 129/107 H 04/07/20 21:28 98.1 F 90 16 118/94 Pulse Ox 04/08/20 19:35 93 04/08/20 19:25 94 04/08/20 19:15 95 04/08/20 19:09 95 04/08/20 17:30 93 04/08/20 15:53 95 04/08/20 11:55 94 04/08/20 07:00 93 04/08/20 02:00 97 04/08/20 01:30 97 04/08/20 01:15 04/08/20 01:00 96 04/07/20 23:32 96 04/07/20 22:57 97 04/07/20 21:28 95 Transfer of Care Handoff Completed per policy Notes Mental Status: alert / awake / arousable and participated in evaluation Patient Amnestic to Procedure: Yes Nausea / Vomiting: adequately controlled Pain: adequately controlled Airway Patency, RR, SpO2: stable & adequate BP & HR: stable & adequate Hydration State: stable & adequate Anesthetic Complications: no major complications apparent and Pt Satisfied with anesthetic care
--- NOTE | 2020-04-08 20:35 | Consultation Report ---
DATE OF CONSULTATION: 04/08/2020 CHIEF COMPLAINT: Fall with facial trauma. HISTORY OF PRESENT ILLNESS: Mr. Burns is a 70-year-old man, lives in [place] and was drinking and then taking his trash out to the curb last evening, he tripped and fell and struck his face. He was brought to the Emergency Department and I was consulted from there. He was admitted to the hospital and then subsequently we plan to take him to the OR. When he fell, he struck his forehead and his nose resulting in a very macerated, comminuted 6 cm midline forehead laceration with lots of gravel imbedded in the wound. He also had a 3 cm stellate full thickness nasal bridge laceration down to an open nasal fracture. He had a full workup and facial imaging which shows a moderately displaced nasal fracture, but no other signs of bony fracture or trauma. I will refer you to his admission history and physical for the details of his past medical history and such. In summary, he is 70 years old, has a history of hyperlipidemia and probably some alcoholism, but does not take any medications and has no known drug allergies. PHYSICAL EXAMINATION: He is awake, alert and oriented. There is a large midline forehead laceration with multiple areas of superficial skin avulsion and some areas that are deep down to the pericranium. The bleeding is currently completely controlled. His nasal laceration is 3 cm and stellate across the bridge of his nose with exposed bone in the fracture line. I have explained the nature of the injuries to Mr. Burns and recommended that we proceed to the OR for washout, debridement, and closure of the lacerations and closed reduction of the nasal fracture, and he has agreed to that and signed informed consent. We will plan to do this later today.
--- NOTE | 2020-04-09 00:07 | Operative Report (OR) ---
DATE OF OPERATION: 04/08/2020 PREOPERATIVE DIAGNOSES: Complex forehead and nasal lacerations. The forehead laceration being 6 cm and the nasal laceration 3cm with a moderately displaced comminuted nasal bone fracture. POSTOPERATIVE DIAGNOSES: Complex forehead and nasal lacerations. The forehead laceration being 6 cm and the nasal laceration 3cm with a moderately displaced comminuted nasal bone fracture. PROCEDURE: Washout of the lacerations, laceration repair and closed reduction of the nasal fracture. SURGEON: Dr. Keo Harrell. ANESTHESIA: General. ESTIMATED BLOOD LOSS: 15 mL. DRAINS: None. SPECIMENS: None. COMPLICATIONS: None. INDICATIONS: The patient is a 70-year-old man who fell striking his face last evening, now being brought to the OR for repair of his injuries. He has had a routine preoperative evaluation and felt to be stable for general anesthesia in this procedure. DESCRIPTION OF PROCEDURE: The patient was taken to the OR and placed supine on the operating room table. Routine anesthesia monitor was applied. General anesthesia was induced and oral endotracheal intubation was performed. The eyes were lubricated. The endotracheal tube was secured. Sterile prep and drape was performed and then I irrigated his eyes with balanced salt solution. I used 1% lidocaine with 1:100,000 epinephrine as field blocks and then copiously irrigated all his lacerations, inspected them and removed pieces of gravel and any foreign debris that we found, several bleeding skin edges were cauterized and then I used a single layer 4-0 chromic gut suture to primarily repair all the lacerations. I then moved to his nasal fracture. There were some loose pieces of bone within the laceration site that I debrided, I copiously irrigated this and then I used the nasal reduction elevator and forceps to restore the nasal dorsum back to the midline. His septum did not appear to be traumatized and remained relatively straight in the midline with patent airway bilaterally. I then completed another single layer closure of the nasal laceration with 4-0 chromic gut suture. There was good hemostasis throughout. I placed bacitracin over all the sutures and then turned him over to anesthesia where he was extubated in the operating room and transferred to the recovery area in stable condition. At the end of the procedure, all counts were correct. I attest to the content of the Intraoperative Record and any orders documented therein. Any exceptions are noted below. IJEOMA
--- NOTE | 2020-04-09 04:40 | Communication Note ---
Date of Service: April 08, 2020 Made aware by RN of uncontrolled blood pressure. SBP 160-180s since noontime. Patient without complaints. No signs of alcohol withdrawal as per RN. AP Hypertensive urgency Possible chronic hypertension given cardiomegaly on CXR Initiate lisinopril. Will relay to AM provider.
[2020-04-09 07:34] LABS: Hematocrit (blood only) 44.3 % (42-52); Hemoglobin 14.5 g/dL (14.0-18.0); Mean Corpuscular Hemoglobin 28.8 pg (25-34); Mean Corpuscular Hgb Conc 32.7 g/dL (32-36); Mean Corpuscular Volume 87.9 fL (80-100); Mean Platelet Volume 9.1 fL (7.4-10.4); Platelet Count 271 K/uL (130-400); RDW Standard Deviation 41.8 fL (36.4-46.3); Red Blood Count 5.04 M/uL (4.7-6.1); White Blood Count 8.06 K/uL (4.8-10.8)
[2020-04-09] MEDS: AMOXICILLIN/CLAVULANATE 875 MG TAB PO SCH (07:58)
[2020-04-09 08:04] LABS: BUN Creatinine Ratio 15.6 (10-20); Calcium 9.1 mg/dl (8.5-10.1); Creatinine Clr Calc Pharmacy 79.5 ml/min; Est GFR (African American) 95.5; Est GFR (Non-African American) 82.4; Magnesium 2.3 mg/dl (1.8-2.4); Potassium 3.9 mmol/L (3.5-5.1)
[2020-04-09] MEDS ORDERED: FOLIC ACID 1 MG TAB PO SCH (09:00)
[2020-04-09] MEDS ORDERED: THIAMINE HCL 100 MG TAB PO SCH (09:00)
[2020-04-09] MEDS ORDERED: MULTIVITAMIN TAB PO SCH (09:00)
--- NOTE | 2020-04-09 14:24 | Hospitalist Progress Note ---
Date of Service April 09, 2020 Assessment & Plan (1) Facial trauma: Facial Trauma Multiple Forehead/Nasal lacerations Displaced comminuted Nasal bone fracture Secondary to fall in setting of alcohol intoxication S/P washout of the lacerations, laceration repair and closed reduction of the nasal fracture by POD#1 --Head CT:No acute intracranial findings. Forehead contusion and laceration which contains a few radiopaque foreign bodies that measure up to 3 mm. This finding will be called/faxed to the ordering provider at time of dictation. No calvarial fracture. Acute nasal bone fractures which are better depicted on the maxillofacial CT. --Facial CT:Acute comminuted mildly displaced bilateral nasal bone fractures. Nasal soft tissue swelling and laceration which contains tiny radiopaque densities suggestive of small foreign bodies. Less likely, these could reflect bone fragments. This finding will be called/faxed to the ordering provider at time of dictatio --Neck CT:There is no evidence of fracture or subluxation involving the cervical spine. --Pain control --Continue Augmentin for facial wounds --Appreciate maxillofacial surgery help --Needs follow up with surgery as outpatient Alcohol use disorder On withdrawal protocol Monitor for withdrawal Continue thiamine, folic acid No withdrawal symptoms currently Recommended inpatient alcohol rehab placement, but patient prefers to follow-up as outpatient. Case management on board COPD Ongoing tobacco abuse Saturating well on room air Denies being on inhalers at home Counseled to quit smoking DVT Px: SCDs facial lacerations, traumatic epistaxis Code Status Full code Disposition Plan to discharge home today. Admission and Anticipated Discharge Date Admission Date: April 08, 2020 Subjective Patient is seen and examined at bedside States feeling well today Denies any pain at surgical site No withdrawal symptoms currently Denies any chest pain, SOB, dizziness, nausea, abdominal pain Prefers to follow-up with alcohol rehab as outpatient Offers no other complaints Review of Systems Review of Systems: All systems reviewed & are unremarkable except as noted in HPI & below Physical Exam Physical Exam: Physical Exam: Vitals signs as noted above General Appearance:Moderately built and nourished, no apparent distress Head: normocephalic, +traumatic, +Nasal, Forehead trauma/laceration Eyes: normal inspection, EOMI Neck: supple, Trachea midline Respiratory/Chest: Decreased breath sounds, CTA Cardiovascular: S1, S2, No murmur Abdomen/GI:Soft, Non tender, Bowel sounds present Extremities/Musculoskelatal:normal inspection, Trace edema Neurologic/Psych:AAOX3, grossly no focal neurological deficits Skin: normal color, warm Results & Data Results & Data ([facility]) Vital Signs (Past 12 Hours) Vital Signs Temp Pulse Resp BP Pulse Ox 04/09/20 11:52 36.4 C L 73 18 148/91 H 94 04/09/20 07:18 36.2 C L 67 16 154/97 H 96 04/09/20 03:14 36.6 C 63 16 167/95 H 97 Laboratory Results Short CBC 04/09/20 Range/Units 07:24 WBC 8.06 (4.8-10.8) K/uL Hgb 14.5 (14.0-18.0) g/dL Hct 44.3 (42-52) % Plt Count 271 (130-400) K/uL BMP 04/09/20 07:24 Sodium 139 Potassium 3.9 Chloride 106 Carbon Dioxide 25 BUN 15 D Creatinine 0.94 Glucose 156 H Calcium 9.1
--- NOTE | 2020-04-09 14:39 | Discharge Summary ---
Date of Service April 09, 2020 Admission HPI Per Admitting Provider History obtained from patient and records. Medical history significant for COPD, ongoing tobacco abuse. Patient was having a drink with a friend at his home last night. Patient tripped and fell while taking the trash out. Patient subsequently sustained abrasions on the right shoulder, multiple bleeding facial lacerations, and epistaxis. Denies syncope, LOC, chest pain, S OB. Patient denies headache symptoms. Patient brought to the ER for evaluation. IV Unasyn, tetanus toxoid administered at the ER for dirty facial wounds. Medical History as above No prior history of alcohol withdrawal/seizures. Surgical History : Hernia repair Family History : Colon cancer, heart disease, stroke Personal/Social history : Half pack daily, daily alcohol intake denies abuse, retired cook helper Admission Exam Per Admitting Provider Physical Exam Physical Exam: GENERAL: Comfortable, pleasant, obese, alcoholic fetor, no respiratory distress SKIN: Normal color, warm HEENT: Partial alopecia, lacerated wound frontal area, pink palpebral conjunctivae, no ptosis, lacerated wounds over swollen nasal dorsum, dried blood noted over the nostrils, dry buccal mucosa, partially edentulous NECK : Supple, short neck, no tenderness CHEST : Decreased breath sounds, no tenderness HEART : RRR, no obvious murmurs ABDOMEN: Some distention, nontender EXTREMITIES : Abrasion right shoulder, no LE swelling/tenderness, no other conspicuous deformities noted NEUROLOGIC : Coherent, no facial asymmetry, no other gross focality Principal Diagnosis Facial Trauma Multiple Forehead/Nasal lacerations Displaced comminuted Nasal bone fracture Alcohol use disorder Discharge Data Allergies Allergy/AdvReac Type Severity Reaction Status Date / Time No Known Allergies Allergy Unknown Verified 04/07/20 23:01 Consultations 04/07/20 23:57 ED Decision to Admit Stat 04/08/20 02:55 Consult Oromaxillofacial Surgery Routine 04/08/20 06:19 Consult Case Management - Discharge Planning Routine Procedures Performed Operation Date: 04/08/20 10:45 Actual Procedures p Washout Facial Wound, Laceration Repair, Close Nasal Fracture Reduction(Not Applicable) - Keo Harrell MD, DDS s Closed Reduction Nasal Fracture(Not Applicable) - Keo Harrell MD, DDS --Head CT:No acute intracranial findings. Forehead contusion and laceration which contains a few radiopaque foreign bodies that measure up to 3 mm. This finding will be called/faxed to the ordering provider at time of dictation. No calvarial fracture. Acute nasal bone fractures which are better depicted on the maxillofacial CT. --Facial CT:Acute comminuted mildly displaced bilateral nasal bone fractures. Nasal soft tissue swelling and laceration which contains tiny radiopaque densities suggestive of small foreign bodies. Less likely, these could reflect bone fragments. This finding will be called/faxed to the ordering provider at time of dictatio --Neck CT:There is no evidence of fracture or subluxation involving the cervical spine. Ordered Studies 04/07/20 21:58 CT cervical spine wo con Urgent CT facial bones wo con Urgent CT head/brain wo con Urgent Hospital Course (1) Facial trauma: Facial Trauma Multiple Forehead/Nasal lacerations Displaced comminuted Nasal bone fracture Secondary to fall in setting of alcohol intoxication S/P washout of the lacerations, laceration repair and closed reduction of the nasal fracture by POD#1 --Head CT:No acute intracranial findings. Forehead contusion and laceration which contains a few radiopaque foreign bodies that measure up to 3 mm. This finding will be called/faxed to the ordering provider at time of dictation. No calvarial fracture. Acute nasal bone fractures which are better depicted on the maxillofacial CT. --Facial CT:Acute comminuted mildly displaced bilateral nasal bone fractures. Nasal soft tissue swelling and laceration which contains tiny radiopaque densities suggestive of small foreign bodies. Less likely, these could reflect bone fragments. This finding will be called/faxed to the ordering provider at t qiana of dictatio --Neck CT:There is no evidence of fracture or subluxation involving the cervical spine. --Pain control --Continue Augmentin for facial wounds --Appreciate maxillofacial surgery help --Needs follow up with surgery as outpatient Alcohol use disorder On withdrawal protocol Monitor for withdrawal Continue thiamine, folic acid No withdrawal symptoms currently Recommended inpatient alcohol rehab placement, but patient prefers to follow-up as outpatient. Case management on board COPD Ongoing tobacco abuse Saturating well on room air Denies being on inhalers at home Counseled to quit smoking DVT Px: SCDs facial lacerations, traumatic epistaxis Code Status Full code Disposition Plan to discharge home today. Total Time Total Time Spent Total Time Spent (In Minutes): 42 minutes Total Time Includes: Examination of the Patient, Discharge Planning, Medication Reconciliation, Communication With Other Providers and Other Discharge Plan Discharge Items Patient Disposition: Home - Self-Care Reason For Visit: FALL, POSS ETOH WITHDRAWAL Discharge Diagnosis: Facial Trauma Multiple Forehead/Nasal lacerations Displaced comminuted Nasal bone fracture Alcohol use disorder Condition on Discharge: Fair Activity: Per Instructions section Exercise/Sports: Wait until after follow-up appointment Non-emergency contact: Primary Care Provider and Surgeon Call non-emergency contact if: you have any medication questions, your symptoms worsen, your pain is not controlled, your pain is worsening, your pain is unusual for you, your pain is concerning for you, you have a fever, your wound has increased redness, your wound has increased drainage and your wound pain has increased Follow-up/Referrals: Jez Mayer MD [Primary Care Provider] - 04/15/20 11:20 am (Date & Time 04/15/2020 11:20 AM Provider Jez Mayer MD [facility] ) Diet: Heart Healthy Addtl Attending Provider Instructions: Follow up with your primary care physician Dr. Mayer on April 15, 2020 at 11:20 AM Follow-up with your surgeon Dr. Harrell as advised by your surgeon. Consider following with alcohol rehab as outpatient as advised. Complete the antibiotic course Augmentin as prescribed Quit drinking alcohol as advised. Seek immediate medical attention if your symptoms reoccur or worsen Pending Studies at Discharge: No Stand-Alone Forms: My Contapps, Smoking Cessation Medications and DC Order Prescriptions: New thiamine HCl (vitamin B1) [Vitamin B-1] 100 mg Tablet 100 mg PO QAM 30 Days Qty: 30 RF: 0 folic acid 1 mg Tablet 1 mg PO QAM 30 Days Qty: 30 RF: 0 lisinopril [Zestril] 5 mg Tablet 5 mg PO HS 30 Days Qty: 30 RF: 0 amoxicillin-pot clavulanate [Augmentin] 875-125 mg Tablet 1 tab PO BIDM 7 Days Qty: 14 RF: 0 No Action No Known Home Medications RF: 0 Discharge Orders: Discharge Order (Routine); Ordered 04/09/20 Ordered By: Jefe Broussard Admission Data Admit Date/Time: 04/08/20 14:33 Attending Provider: Jefe Broussard Admit Provider: Madan Stout Primary Care Provider: Jez Mayer Other Providers: Madan Stout ; Keo Harrell Other Interventions: Discharge Summary Assessment (RN) Last Done: 04/09/20 14:55
[2020-04-09] MEDS ORDERED: lisinopriL 5 MG TAB PO SCH (21:00)
== END 2020-04-09 15:57 | disposition home or self-care (01) | DRG 156 ==
LOC: 2N 21:23 → ED 21:23 → SUATTDRO 04-08 00:38 → 2N 04-08 01:03